=== PATIENT | male | born 1960 | race Caucasian/White ===

== ENCOUNTER 2018-01-27 04:02 | Emergency (ER) | payer MEDICAID, OTHER ==
[~2018-01-27] VITALS: Ht 167.6 cm; Wt 113.6 kg
[2018-01-27] MEDS ORDERED: ATOR20TA9 PO (04:21)
[2018-01-27] MEDS ORDERED: UNKOWN BP MED (04:21)
[2018-01-27] MEDS ORDERED: ACETAMINOPHEN 500 MG TABLET PO ONE (04:30)
[2018-01-27] MEDS ORDERED: BENZONATATE 100 MG CAPSULE ONE (04:30)
[2018-01-27] MEDS ORDERED: BENZONATATE 100 MG CAPSULE PO ONE (04:30)
[2018-01-27] MEDS ORDERED: ACETAMINOPHEN 500 MG TABLET ONE (04:31)
[2018-01-27 04:34] VITALS: BP 139/75
[2018-01-27] MEDS ORDERED: PLEASE ENTER ALLERGIES MC SCH (05:00)
== END 2018-01-27 05:51 | disposition home or self-care (01) ==
LOC: ED 05:20
DX: S29.011A Strain of muscle and tendon of front wall of thorax, initial encounter (principal); J06.9 Acute upper respiratory infection, unspecified; I10 Essential (primary) hypertension; E78.00 Pure hypercholesterolemia, unspecified; X58.XXXA Exposure to other specified factors, initial encounter; Y93.89 Activity, other specified; Y92.89 Other specified places as the place of occurrence of the external cause; Y99.9 Unspecified external cause status
CPT/HCPCS: 71046; 99284